=== PATIENT | male | born 1995 | race Caucasian/White ===

== ENCOUNTER 2017-05-07 16:18 | Emergency (ER) | payer OTHER ==
[~2017-05-07] VITALS: Ht 188 cm; Wt 83.9 kg
[~2017-05-07 16:18] MED LIST: ACYCLOVIR 400400 MG PO; HYDROCODONE-AP1 EAC6 PO; IBUPROFEN 800800 MG PO; NORCO 5-325 TA1 EACH PO; VYVANSE60 MG PO
[2017-05-07 16:21] VITALS: BP 144/93
[2017-05-07 16:42] LABS: URINE BILIRUBIN NEGATIVE (Negative); URINE BLOOD 2+ (Negative); URINE CLARITY CLEAR; URINE COLOR YELLOW; URINE GLUCOSE-RANDOM NEGATIVE (Negative); URINE KETONES 1+ (Negative); URINE NITRITE-REFLEX NEGATIVE (Negative); URINE PROTEIN TRACE (Negative); URINE SPECIFIC GRAVITY 1.025 (1.005-1.030); URINE UROBILINOGEN 0.2 E.U./dl (0.2-1.0)
[2017-05-07 16:45] LABS: URINE LEUKOCYTES-REFLEX 2+ (Negative)
[2017-05-07 16:57] LABS: CRYSTALS None Seen /LPF (None Seen); MUCUS None Seen strn/LPF (None Seen); SQUAMOUS NONE SEEN /LPF (0-3); URINE RBC 3-10 Few /HPF (0-2)
[2017-05-07 16:59] LABS: BACTERIA-REFLEX 1-9 Few /HPF (None Seen); CASTS None Seen /LPF (None Seen); WBC CLUMPS Few (None Seen)
[2017-05-07 17:00] LABS: URINE WBC-REFLEX >25 Many /HPF (0-5)
== END 2017-05-07 16:49 | disposition home or self-care (01) ==
LOC: M.ERS 16:18
PROVIDERS: Family Medicine
DX: A63.8 Other specified predominantly sexually transmitted diseases (principal); B35.6 Tinea cruris; F90.9 Attention-deficit hyperactivity disorder, unspecified type; F17.210 Nicotine dependence, cigarettes, uncomplicated; F10.99 Alcohol use, unspecified with unspecified alcohol-induced disorder; F12.10 Cannabis abuse, uncomplicated

== ENCOUNTER 2018-04-29 01:47 | Emergency (ER) | payer BC, OTHER ==
[~2018-04-29] VITALS: Ht 188 cm; Wt 95.3 kg
[2018-04-29] MEDS ORDERED: KEFLEX500 M1 PO (02:20)
[2018-04-29 02:29] VITALS: BP 121/67
== END 2018-04-29 02:30 | disposition home or self-care (01) ==
LOC: M.ERS 01:47
DX: S61.412A Laceration without foreign body of left hand, initial encounter (principal); F90.9 Attention-deficit hyperactivity disorder, unspecified type; F17.210 Nicotine dependence, cigarettes, uncomplicated; W26.8XXA Contact with other sharp object(s), not elsewhere classified, initial encounter; Y93.89 Activity, other specified; Y92.89 Other specified places as the place of occurrence of the external cause; Y99.8 Other external cause status

== ENCOUNTER 2018-07-02 17:58 | Emergency (ER) | payer OTHER ==
[~2018-07-02] VITALS: Ht 188 cm; Wt 81.7 kg
[~2018-07-02 17:58] MED LIST changes: +KEFLEX500 M1 PO
[2018-07-02 19:01] VITALS: BP 156/99
== END 2018-07-02 19:01 | disposition home or self-care (01) ==
LOC: M.ERS 17:58
DX: N50.89 Other specified disorders of the male genital organs (principal); F90.9 Attention-deficit hyperactivity disorder, unspecified type; F17.210 Nicotine dependence, cigarettes, uncomplicated

== ENCOUNTER 2020-07-08 01:41 | Emergency (ER) | payer OTHER ==
[~2020-07-08] VITALS: Ht 188 cm; Wt 90.7 kg
[2020-07-08 02:19] LABS: URINE BILIRUBIN NEGATIVE (Negative); URINE BLOOD NEGATIVE (Negative); URINE CLARITY CLEAR; URINE COLOR YELLOW; URINE GLUCOSE-RANDOM NEGATIVE (Negative); URINE KETONES NEGATIVE (Negative); URINE LEUKOCYTES NEGATIVE (Negative); URINE NITRITE NEGATIVE (Negative); URINE PROTEIN NEGATIVE (Negative)
[2020-07-08 02:26] LABS: HEMATOCRIT 46.4 % (42.0-52.0); HEMOGLOBIN 15.7 gm/dL (14.0-18.0); MCH 32.9 pg (26.0-34.0); MCHC 33.9 g/dL (28.0-37.0); MCV 96.9 fL (80.0-100.0); MPV 6.9 fl. (7.2-11.1); RBC 4.78 mil/uL (4.50-6.00); RDW-CV 13.7 % (10.5-14.5)
[2020-07-08 02:27] LABS: AMP/METHAMP Negative (Negative); BARBITURATES Negative (Negative); BENZODIAZEPINES Negative (Negative); COCAINE POSITIVE (Negative); METHADONE Negative (Negative); OPIATES Negative (Negative); PCP Negative (Negative); THC POSITIVE (Negative)
[2020-07-08 02:39] LABS: CALCIUM 8.7 mg/dL (8.5-10.1); CREATININE 1.1 mg/dL (0.6-1.3); POTASSIUM 3.7 mmol/L (3.5-5.1)
[2020-07-08 02:44] LABS: ALBUMIN 4.2 g/dL (3.4-5.0); TOTAL BILIRUBIN 0.5 mg/dL (<0.1-1.0); TOTAL PROTEIN 7.1 g/dL (6.4-8.2)
[2020-07-08 02:49] LABS: ALCOHOL 294 mg/dL (<10); SALICYLATE 4.4 mg/dL (2.8-20.0)
[2020-07-08 02:53] LABS: ACETAMINOPHEN < 2 ug/mL (10-30)
[2020-07-08 17:34] VITALS: BP 119/80
== END 2020-07-08 17:34 ==
LOC: M.ERS 01:41
PROVIDERS: Personal Emergency Response Attendant
DX: F10.129 Alcohol abuse with intoxication, unspecified (principal); Y90.8 Blood alcohol level of 240 mg/100 ml or more; F14.129 Cocaine abuse with intoxication, unspecified; R45.851 Suicidal ideations; Z20.822 Contact with and (suspected) exposure to COVID-19; F90.9 Attention-deficit hyperactivity disorder, unspecified type; F17.210 Nicotine dependence, cigarettes, uncomplicated